=== PATIENT | female | born 1955 | race Caucasian/White ===

== ENCOUNTER → 2016-12-06 | Outpatient (CLI) | payer BC ==
[2016-12-06 14:48] LABS: CREATININE, URINE 27.3 MG/DL (15-500)
== END ==
LOC: LAB 10:18
PROVIDERS: ATTEND Internal Medicine
DX: E11.9 Type 2 diabetes mellitus without complications (principal); Z79.4 Long term (current) use of insulin
CPT/HCPCS: 82043; 83036

== ENCOUNTER 2016-12-20 12:22 | Day surgery (SDC) | payer BC ==
[~2016-12-20 12:22] MED LIST: LIDOCAINE W/ SODIUM BICARB 0.5 ML SYR ONE; Lactated Ringers 1,000 ML PRIMARY IV ONE; ceFAZolin Inj 2gm (Premix) 50 ML IV ONE
[2016-12-20] MEDS ORDERED: LIDOCAINE 2%/ EPI 1:200,000 - 20 ML VIAL ONE (13:35)
[2016-12-20] MEDS ORDERED: MIDAZOLAM 5 MG/1 ML ONE (13:35)
[2016-12-20] MEDS ORDERED: fentaNYL Inj 100 MCG/2 ML VIAL ONE (13:35)
[2016-12-20] MEDS ORDERED: MEPIVACAINE HCL/PF 20 MG/1 ML IV ONE (13:35)
[2016-12-20] MEDS ORDERED: cloNIDine HCL/PF 100 MCG/ML - 10 ML VIAL EPIDURAL ONE (13:36)
[2016-12-20] MEDS ORDERED: KETOROLAC 30 MG/1 ML VIAL ONE (14:43)
[2016-12-20] MEDS ORDERED: MORPHINE SULFATE 2 MG/1 ML IVP PRN (14:57)
[2016-12-20] MEDS ORDERED: ONDANSETRON 4 MG/2 ML VIAL IVP PRN (14:57)
[2016-12-20] MEDS ORDERED: NORMAL SALINE 10 ML SYRINGE FLUSH IVP PRN (14:57)
[2016-12-20] MEDS ORDERED: HYDROcodone-APAP 5 MG -325 MG TABLET PO PRN (14:57)
--- NOTE | 2016-12-20 16:08 | CRNA.PROCE ---
Nerve Block Documentation - - Type of Nerve Block Used: Left Axillary Block Position for Nerve Block: Supine Moniters Used During Block: EKG, SPO2, NIBP Oxygen Sumpplented: Yes Sedation Used - Enter Amount in Comment Field: Midazolam (mg): Yes (2mg), Fentanyl (mcg): Yes (50mcg) Skin Prep Used: ChloroPrep Draped: No Technique: Nerve Stimulator Nerve Block Needle Used: 40 mm ProBlk II Stimulation Hz: 2 Stimulation Staring mA: 1.2 Stimulation Ending mA: 0.44 Local Anesthetic - Enter Amt in Comment Field: 2 % Xylocaine with Epinephrine 1: 200,000 (mL): Yes (20ml), 2 % Mepivacaine (mL): Yes (20ml) Additives to Nerve Blocks: Clonidine (mg): Yes (100mcg)
[2016-12-20 16:54] VITALS: RESP 20; TEMP 96.9
== END 2016-12-20 16:45 | disposition home or self-care (01) ==
LOC: SDSC 12:22
PROVIDERS: ATTEND Orthopaedic Surgery
DX: G56.02 Carpal tunnel syndrome, left upper limb (principal)
CPT/HCPCS: 64721; J0690; J0735; J1885; J2704; J3010; J0670; J2250; J7120

== ENCOUNTER → 2017-03-08 | Outpatient (CLI) | payer BC ==
[2017-03-08 08:21] LABS: BLOOD UREA NITROGEN 16 mg/dL (7-22); CALCIUM 9.8 mg/dL (8.7-10.7); CHOL/HDL RATIO 2.46 RATIO (0-4.0); EST GLOMERULAR FILTRATION > 60 (>60 ml/min/1.73m(2)); HDL CHOLESTEROL 56 mg/dL (40-150); SERUM ALBUMIN 4.2 g/dL (3.5-4.8); SERUM CHOLESTEROL 138 mg/dL (120-200)
[2017-03-08 08:24] LABS: HEMOGLOBIN A1C 6.55 % (4.2-6.0)
== END ==
LOC: LAB 07:43
PROVIDERS: ATTEND Internal Medicine
DX: E11.9 Type 2 diabetes mellitus without complications (principal); Z79.4 Long term (current) use of insulin; E78.5 Hyperlipidemia, unspecified; I10 Essential (primary) hypertension; M81.0 Age-related osteoporosis without current pathological fracture
CPT/HCPCS: 36415; 80053; 80061; 82043; 82306; 82550; 83036

== ENCOUNTER → 2017-03-31 | Outpatient (CLI) | payer BC ==
--- NOTE | 2017-03-31 13:37 | DI ---
CT BONE DENSITOMETRY OF THE SPINE AND HIP, 03/31/2017 8:03 AM : Clinical History: Asymptomatic post menopausal patient. Screening. Previous Exam: December 24, [address] (QCT) Bone Mineral Densitometry: The [place] scans are normal. Low dose scans are obtained of the lumbar spine and sampling is obtaine d through the midbodies of L1 and L2. The average volumetric bone mineral density (BMD) of the lumbar spine is 84.7 mg/cm3. This value corresponds to a volumetric T-score of -3.2 and Z-score of -0.6 as assessed by this BMD software. Volumetric 3D QCT and areal DEXA T-scores and Z-scores are not directl y equivalent. Using the [employer]'s (ACR) volumetric QCT trabecular spine BMD con version table that is closely equivalent to the areal WHO diagnostic categories, this patient falls i nto the category of osteopenia. CT X-Ray Absorptiometry (CTXA) Hip Bone Mineral Densitometry: Low dose scans are obtained through the hips for assessment of bone mineral density (BMD) and T-score s and Z-scores of the left hip. Total hip BMD: 0.812 mg/cm2 T-score: -0.95 Z-score: Femoral neck BMD: 0.695 mg/cm2 T-score: -0.90 Z-score: Note: T-scores of the spine and hip exhibit discordant readings approximately 40% of the time in eval uated patients. Changes in BMD determined either by volumetric QCT or areal DEXA are more reliable in assessment of change in a patient's BMD status rather than changes in T-scores. The CTXA hip CT bone mineral density measurements and the resultant T-scores and Z-scores are exact hip DEXA scan equival ents. The femoral neck T-score can be used in the WHO's FRAX program for assessing an untreated patie nt's 10 year fracture risk. READING: Osteopenia of the lumbar spine with normal bone mineral density of the left hip.
== END ==
LOC: CT 07:57
PROVIDERS: ATTEND Internal Medicine
DX: M81.0 Age-related osteoporosis without current pathological fracture (principal)
CPT/HCPCS: 77078

== ENCOUNTER 2017-04-18 12:39 | Day surgery (SDC) | payer BC ==
[2017-04-18] MEDS ORDERED: D5W 500 ML PRIMARY IV ONE (13:17)
[2017-04-18] MEDS ORDERED: MIDAZOLAM 5 MG/1 ML ONE (14:13)
[2017-04-18] MEDS ORDERED: fentaNYL Inj 100 MCG/2 ML VIAL ONE (14:14)
[2017-04-18] MEDS ORDERED: BUPivacaine Inj 0.25% PF - 10ml vial ONE (14:43)
[2017-04-18] MEDS ORDERED: MEPIVACAINE HCL/PF 20 MG/1 ML IV ONE (15:02)
[2017-04-18] MEDS ORDERED: LIDOCAINE 2%/ EPI 1:200,000 - 20 ML VIAL ONE (15:02)
[2017-04-18] MEDS ORDERED: Lactated Ringers 1,000 ML PRIMARY IV ONE (16:08)
[2017-04-18] MEDS ORDERED: BISACODYL 5 MG TABLET PO PRN (16:29)
[2017-04-18] MEDS ORDERED: MAG HYDROX/AL HYDROX/SIMETH 30 ML SUSP PO PRN (16:29)
[2017-04-18] MEDS ORDERED: CALCIUM CARBONATE 500 MG (TUMS) CHEWABLE TABLET PO PRN (16:29)
[2017-04-18] MEDS ORDERED: Prochlorperazine Tab 10 MG TAB PO PRN (16:29)
[2017-04-18] MEDS ORDERED: HYDROcodone-APAP 5 MG -325 MG TABLET PO PRN (16:29)
[2017-04-18] MEDS ORDERED: ONDANSETRON 4 MG/2 ML VIAL IVP PRN (16:29)
[2017-04-18] MEDS ORDERED: diphenhydrAMINE 25 MG CAPSULE PO PRN (16:29)
[2017-04-18] MEDS ORDERED: ACETAMINOPHEN 325 MG TABLET PO PRN (16:29)
[2017-04-18] MEDS ORDERED: NORMAL SALINE 10 ML SYRINGE FLUSH IVP PRN (16:29)
[2017-04-18] MEDS ORDERED: MORPHINE SULFATE 2 MG/1 ML IVP PRN (16:29)
[2017-04-18] MEDS ORDERED: BISACODYL 10 MG SUPPOSITORY RECTAL PRN (16:29)
[2017-04-18] MEDS ORDERED: Ondansetron ODT Tab 8 MG TAB PO PRN (16:29)
[2017-04-18] MEDS ORDERED: IBUPROFEN 400 MG TABLET PO PRN (16:29)
[2017-04-18] MEDS ORDERED: Lactated Ringers 1,000 ML PRIMARY IV SCH (16:30)
[2017-04-18 18:02] VITALS: RESP 16
[2017-04-18 18:05] VITALS: TEMP 96.9
== END 2017-04-18 17:41 | disposition home or self-care (01) ==
LOC: SDSC 12:39
PROVIDERS: ATTEND Orthopaedic Surgery
DX: G56.01 Carpal tunnel syndrome, right upper limb (principal); M72.0 Palmar fascial fibromatosis [Dupuytren]
CPT/HCPCS: 25105; 64721; J0690; J2704; J3010; J0670; J2250; J7070; J7120